=== PATIENT | male | born 1970 | race Caucasian/White ===

== ENCOUNTER 2021-07-31 09:05 | Outpatient (CLI) | payer BC, SELFPAY ==
[2021-07-31 09:20] LABS: Basophils Absolute Auto 0.04 K/mm3 (0.00-0.10); Basophils Percent Auto 0.5 % (0.0-1.0); Eosinophils Absolute Auto 0.26 K/mm3 (0.02-0.50); Eosinophils Percent Auto 2.9 % (1.0-6.0); Hematocrit 47.2 % (40.0-54.0); Hemoglobin 15.6 g/dL (14.0-18.0); Immature Granulocyte Absolute 0.04 K/mm3 (0.00-0.00); Immature Granulocyte Percent A 0.5 % (0.0-0.0); Lymphocytes Absolute Auto 2.49 K/mm3 (1.10-4.50); Lymphocytes Percent Auto 28.2 % (18.0-42.0); Mean Corpuscular HGB Conc 33.1 g/dL (32.0-36.0); Mean Corpuscular Hemoglobin 29.7 pg (27.0-31.0); Mean Corpuscular Volume 89.9 fL (78.0-102.0); Mean Platelet Volume 9.6 fl (8.7-11.0); Monocytes Percent Auto 9.1 % (2.0-11.0); Neutrophils Absolute Auto 5.2 K/mm3 (1.7-7.2); Neutrophils Percent Auto 58.8 % (50.0-70.0); Platelet Count Result 303 K/mm3 (150-420); Red Blood Count 5.25 M/mm3 (4.70-6.10); Red Cell Distribution Width 12.5 % (11.6-14.4); White Blood Count 8.8 K/mm3 (4.8-10.8)
[2021-07-31 10:21] LABS: Alanine Aminotransferase 43 U/L (16-63); Albumin Level 4.4 g/dL (3.4-5.0); Alkaline Phosphatase 78 U/L (46-116); Anion Gap 10 mmol/L (8-16); Aspartate Amino Transferase 17 U/L (15-37); Bilirubin,Total 0.7 mg/dL (0.00-1.00); Blood Urea Nitrogen 18 mg/dL (7-18); Calcium 9.4 mg/dL (8.5-10.1); Carbon Dioxide 31 mmol/L (21-32); Chloride 100 mmol/L (98-108); Cholesterol 201 mg/dL (0-200); Estimated Glomerular Filt Rate > 60; Glucose 95 mg/dL (70-99); HDL Direct 59 mg/dL (40-60); LDL Cholesterol Calculated 119 mg/dL (<130); Osmolality Calculated 293 mOsm/kg (285-295); Potassium 4.8 mmol/L (3.5-5.1); Prostate Specific Antigen 1.4 ng/mL (< OR = 4.0); Sodium 141 mmol/L (136-145); Triglycerides 115 mg/dL (0-150)
== END 2021-07-31 09:06 | disposition home or self-care (01) ==
LOC: CHSLAB 09:09
PROVIDERS: PCP Family Medicine; Visit Provider Nurse Practitioner Gerontology
DX: I10 Essential (primary) hypertension (principal); Z12.5 Encounter for screening for malignant neoplasm of prostate
CPT/HCPCS: 36415; 80053; 80061; 84153; 85025; G0103

== ENCOUNTER 2021-10-04 08:14 | Outpatient (CLI) | payer BC, SELFPAY ==
--- NOTE | ~2021-10-04 | XR_ITS ---
EXAMINATION: XR elbow LT min 3V DATE: 10/04/2021 08:32 INDICATION: Left elbow pain TECHNIQUE: Anteroposterior, two oblique and lateral views of the left elbow were obtained. COMPARISON: None. FINDINGS: Alignment of the left elbow is normal. No fracture or joint effusion. Joint spaces are normal. Soft t issues are unremarkable. IMPRESSION: 1. Negative left elbow radiographs. Reviewed, dictated and finalized at location A.
== END 2021-10-04 08:15 | disposition home or self-care (01) ==
LOC: CHSIMG 08:17
PROVIDERS: PCP Family Medicine; Visit Provider Orthopaedic Surgery
DX: M25.522 Pain in left elbow (principal)
CPT/HCPCS: 73080

== ENCOUNTER 2021-12-24 10:55 | Outpatient (RCR) | payer BC, SELFPAY ==
--- NOTE | 2021-12-29 07:18 | PTOPEVAL ---
Thank you for referring Braden Fu to [facility].? The patient is scheduled to be seen for therapy? ____x/week for ___ weeks. Please review, sign, date and return this plan of care ANNA. I agree with and certify that the following plan of care is medically necessary. Referring Physician Date Admitting Provider: Attending Provider: William Gale MD Referring Provider: *PT Outpatient Evaluation Start: 12/24/21 11:04 Freq: Status: Active Protocol: Document 12/24/21 11:04 Tereza (Rec: 12/24/21 12:26 ALISHA [email or web address]) Therapy Assessment Status Assessment Status Assessment Status Evaluation Evaluation Information Problem Diagnosis L Shoulder Pain and L Elbow Pain Onset 12/13/21 Additional Evaluation Detail Quick DASH = 36% Functionally Impaired Subjective Information Pt reports that he began Query Text:As Reported By Patient/ having shoulder pain a few Family years ago and has begun having elbow pain a few months ago. He states that he has had cortisone injection in his L shoulder, which did not help him. He does not have any recollection of a cause of injury for his shoulder and elbow. He states that his L elbow pain is likely tennis elbow. 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 He reports that he used to have a frozen shoulder, that required surgery to allow him to move it better, but is unsure which shoulder that was . Prior Level of Function Comments Additional Prior Level of Function Pt reports that prior to his Comments shoulder pain he was able to work at the [employer] moving 70 pound steel sheets. Pain Assessment Timing of Pain Assessment Timing of Pain Assessment Pre-Treatment Pain Scale Pain Scale Used Numeric (1 - 10) Self Report Pain Assessment Left Elbow(s) Reported Pain Level 1 Pain Description Dull Left Shoulder(s) Reported Pain Level 2 Pain Description Dull Pain Frequency
--- NOTE | 2022-04-26 07:34 | PCPTNOTE ---
meghan has not been to skilled PT since December. as of this date, he will be dc'd from skilled PT services due to lack of return to complete POC. ALISHA
== END 2022-01-12 23:59 | disposition home or self-care (01) ==
LOC: CHSPT 10:55
PROVIDERS: Visit Provider Orthopaedic Surgery
DX: M77.12 Lateral epicondylitis, left elbow (principal); M75.02 Adhesive capsulitis of left shoulder
CPT/HCPCS: 97014; 97110; 97140; 97161; G0283

== ENCOUNTER 2022-04-19 09:03 | Outpatient (CLI) | payer BC, SELFPAY ==
--- NOTE | 2022-04-19 11:00 | NEURO_ITS ---
IMPRESSION: #History of shooting pains in both arms. Left ulnar neuropathy with slowing across the elbow Mild left carpal tunnel syndrome Evolving right carpal tunnel syndrome Normal EMG examination Clinical correlation recommended Nerve Conduction Studies Anti Sensory Summary Table Stim Site NR Peak (ms) P-T Amp (?V) Site1 Site2 Delta-P (ms) Dist (cm) Kev (m/s) Left Median Anti Sensory (2-3nd Digit) Wrist 3.7 24.6 Wrist 2-3nd Digit 3.7 14.0 38 Wrist 2-3nd Digit 3.7 14.0 38 Right Median Anti Sensory (2-3nd Digit) Wrist 3.4 41.7 Wrist 2-3nd Digit 3.4 14.0 41 Wrist 2-3nd Digit 3.4 14.0 41 Left Radial Anti Sensory (Base 1st Digit) Wrist 2.6 32.5 Wrist Base 1st Digit 2.6 0.0 Right Radial Anti Sensory (Base 1st Digit) Wrist 2.3 46.7 Wrist Base 1st Digit 2.3 0.0 Left Ulnar Anti Sensory (5th Digit) Wrist 3.5 26.9 Wrist 5th Digit 3.5 14.0 40 Right Ulnar Anti Sensory (5th Digit) Wrist 2.2 11.8 Wrist 5th Digit 2.2 14.0 64 Motor Summary Table Stim Site NR Onset (ms) O-P Amp (mV) Site1 Site2 Delta-0 (ms) Dist (cm) Kev (m/s) Left Median Motor (Abd Poll Brev) Wrist 4.1 3.4 Elbow Wrist 4.3 23.0 53 Elbow 8.4 2.7 Right Median Motor (Abd Poll Brev) Wrist 3.5 8.2 Elbow Wrist 4.2 25.0 60 Elbow 7.7 7.5 Left Ulnar Motor (Abd Dig Minimi) Wrist 2.8 2.4 A Elbow Wrist 4.2 30.0 71 A Elbow 7.0 1.8 B Elbow Wrist 5.6 29.0 52 B Elbow 8.4 1.2 Right Ulnar Motor (Abd Dig Minimi) Wrist 2.9 8.6 A Elbow Wrist 4.7 29.0 62 A Elbow 7.6 7.1 B Elbow Wrist 3.6 21.0 58 B Elbow 6.5 7.3 F Wave Studies NR F-Lat (ms) L-R F-Lat (ms) Left Median (Mrkrs) (Abd Poll Brev) 30.70 1.25 Right Median (Mrkrs) (Abd Poll Brev) 29.45 1.25 Left Ulnar (Mrkrs) (Abd Dig Min) 29.88 0.18 Right Ulnar (Mrkrs) (Abd Dig Min) 30.06 0.18 EMG Side Muscle Nerve Root Ins Act Fibs Amp Dur Recrt Comment Right 1stDorInt Ulnar C8-T1 Nml Nml Nml Nml Nml Right Ext Indicis Radial (Post Int) C7-8 Nml Nml Nml Nml Nml Right Ext Digitorum Radial (Post Int) C7-8 Nml Nml Nml Nml Nml Right BrachioRad Radial C5-6 Nml Nml Nml Nml Nml Right PronatorTeres Median C6-7 Nml Nml Nml Nml Nml Right Abd Poll Brev Median C8-T1 Nml Nml Nml Nml Nml Left 1stDorInt Ulnar C8-T1 Nml Nml Nml Nml Nml Left Ext Indicis Radial (Post Int) C7-8 Nml Nml Nml Nml Nml Left Ext Digitorum Radial (Post Int) C7-8 Nml Nml Nml Nml Nml Left BrachioRad Radial C5-6 Nml Nml Nml Nml Nml Left PronatorTeres Median C6-7 Nml Nml Nml Nml Nml Left Abd Poll Brev Median C8-T1 Nml Nml Nml Nml Nml MTDD
== END 2022-04-19 09:04 | disposition home or self-care (01) ==
PROVIDERS: PCP Family Medicine; Visit Provider Nurse Practitioner Gerontology
DX: R20.0 Anesthesia of skin (principal); G56.02 Carpal tunnel syndrome, left upper limb; G56.23 Lesion of ulnar nerve, bilateral upper limbs
CPT/HCPCS: 95886; 95911

== ENCOUNTER 2022-08-01 10:25 | Outpatient (CLI) | payer BC, SELFPAY ==
--- NOTE | ~2022-08-01 | XR_ITS ---
EXAMINATION: XR chest 2V Exam Date/Time: 08/01/2022 10:40 CONE SEWER HISTORY: R05.9 - Cough, unspecified Comparison: None available. RESULT: Lines, tubes, and devices: Incompletely visualized cervical fusion hardware. Lungs and pleura: Clear. Cardiomediastinal silhouette: Unremarkable. Other: No acute osseous or upper abdominal finding. IMPRESSION: No acute cardiopulmonary process. Reviewed, dictated and finalized at location K. SEWER
== END 2022-08-01 10:26 | disposition home or self-care (01) ==
LOC: ANHIMG 10:28
PROVIDERS: PCP Family Medicine; Visit Provider Nurse Practitioner Gerontology
DX: R05.9 Cough, unspecified (principal)
CPT/HCPCS: 71046

== ENCOUNTER 2022-09-04 19:39 | Emergency (ER) | payer BC, SELFPAY ==
[2022-09-04 19:44] VITALS: BP 141/91; PULSE 77; RESP 18; TEMP 36.9; O2SAT 99
--- NOTE | 2022-09-04 19:56 | ED.GENADULT ---
HPI - General Adult General Chief complaint: Skin/Abscess/Foreign Body Stated complaint: rash Time Seen by Provider: 09/04/22 19:49 History of Present Illness HPI narrative: Braden is a 52M with a PMH of dermatitis, carpal tunnel, arthritis, GERD, HTN and eczema that presented to the ED with a rash for a couple days. It is an itchy rash over most of his body but spares his neck and hands. OTC steroid cream helps a bit. He was exposed to new chemicals at work (works at [employer]) and he had a new detergent for his clothes. There were no fevers, chills, dyspnea, boils, wheezing, dyspnea or chest pain. Related Data Allergies Allergy/AdvReac Type Severity Reaction Status Date / Time No Known Allergies Allergy Verified 09/04/22 19:50 Review of Systems Review of Systems: All systems reviewed & are unremarkable except as noted in HPI and below PMFSH Past Medical History Medical History Adhesive capsulitis of left shoulder Adhesive capsulitis of right shoulder Arthritis of shoulder region, left, degenerative Benign essential HTN GERD (gastroesophageal reflux disease) Glenohumeral arthritis History of dental problems Hypertension Lateral epicondylitis, left elbow Shoulder pain, bilateral Vision abnormalities Surgical History Surgical History H/O shoulder surgery Right shoulder EFRAÍN DOS: 2019 Dr. Gale Family History Family History Other Hypertension Social History Social History Social History: Smoking packs per day: 1.5 Smoking cigarettes per day: 30.0 Years smoked: 30 Smoking pack-years: 45.00 Smoking status: Never smoker Tobacco type: cigarettes Second hand tobacco smoke exposure: No Smoking end date: 07/24/05 Alcohol intake: current Alcohol use details: Occasionally Substance use: never Substance use type: does not use Living arrangements: with family Occupation/Education: occupation Gender identity (if verbalized by the patient): Male Sexual Orientation (if Verbalized by the Patient): Straight or Heterosexual Exam Const: General: healthy appearing and no acute distress Nutritional Appearance: well nourished HENMT: Head: normal to inspection Ears: external ears normal Eyes: Conjunctivae: conjunctivae normal Pupils: Equal, round and reactive pupils present Neck: Neck: normal visual inspection Chest: Chest palpation & inspection: normal inspection of the chest Resp: Effort & Inspection: normal respiratory effort Cardio: Rate: regular rate GI: Inspection: non-distended Back/Spine/Pelvis: Back: no CVA tenderness Skin: Other: diffuse erythematous maculopapular rash all over his body except his hands, neck and face. There is excoriation on his upper extremities Extrem: General: normal to inspection Psych: Mental Status: mental status grossly normal Course Course Emergency Course: given hydroxyzine and discussed OTC meds for rash and to go back to the previous detergent as well as general skin care (moisturizer, heat reduction, etc.) Discharge Plan Discharge Clinical Impression: Dermatitis Patient Disposition: Home, Self-Care Condition: Stable Instructions: Dermatitis (ED) Prescriptions: New hydroxyzine HCl 50 mg tablet 50 mg PO BID PRN (Reason: itching) Qty: 30 0RF No Action lisinopril-hydrochlorothiazide 20-12.5 mg tablet See Rx Instructions .ROUTE .COMPLEX Qty: 90 1RF Dose Instruction: TAKE 1 TABLET DAILY Rx Instructions: TAKE 1 TABLET DAILY omeprazole 20 mg capsule,delayed release(DR/EC) See Rx Instructions .ROUTE .COMPLEX Qty: 90 1RF Dose Instruction: TAKE 1 CAPSULE DAILY Rx Instructions: TAKE 1 CAPSULE DAILY Follow-up/Referrals: Leyla Posadas
[2022-09-04] MEDS: hydrOXYzine HCL 25 MG TABLET 50 MG PO (20:05)
== END 2022-09-04 20:09 | disposition home or self-care (01) ==
PROVIDERS: Emergency Provider Family Medicine; PCP Family Medicine
DX: L30.9 Dermatitis, unspecified (principal); I10 Essential (primary) hypertension
CPT/HCPCS: 99283; A9270

== ENCOUNTER 2022-10-27 08:19 | Outpatient (CLI) | payer BC, SELFPAY ==
[2022-10-27 08:34] LABS: Basophils Absolute Auto 0.04 K/mm3 (0.00-0.10); Basophils Percent Auto 0.5 % (0.0-1.0); Eosinophils Percent Auto 3.6 % (1.0-6.0); Hematocrit 43.2 % (40.0-54.0); Hemoglobin 14.6 g/dL (14.0-18.0); Immature Granulocyte Absolute 0.04 K/mm3 (0.00-0.00); Immature Granulocyte Percent A 0.5 % (0.0-0.0); Lymphocytes Absolute Auto 2.29 K/mm3 (1.10-4.50); Lymphocytes Percent Auto 27.7 % (18.0-42.0); Mean Corpuscular HGB Conc 33.8 g/dL (32.0-36.0); Mean Corpuscular Hemoglobin 29.7 pg (27.0-31.0); Mean Platelet Volume 9.8 fl (8.7-11.0); Monocytes Absolute Auto 0.64 K/mm3 (0.10-0.90); Monocytes Percent Auto 7.7 % (2.0-11.0); Platelet Count Result 261 K/mm3 (150-420); Red Blood Count 4.91 M/mm3 (4.70-6.10); Red Cell Distribution Width 12.3 % (11.6-14.4); White Blood Count 8.3 K/mm3 (4.8-10.8)
[2022-10-27 09:36] LABS: Alanine Aminotransferase 56 U/L (16-63); Albumin Level 4.1 g/dL (3.4-5.0); Alkaline Phosphatase 81 U/L (46-116); Anion Gap 8 mmol/L (8-16); Aspartate Amino Transferase 29 U/L (15-37); Bilirubin,Total 0.7 mg/dL (0.00-1.00); Blood Urea Nitrogen 14 mg/dL (7-18); Calcium 8.9 mg/dL (8.5-10.1); Carbon Dioxide 31 mmol/L (21-32); Chloride 105 mmol/L (98-108); Cholesterol 165 mg/dL (0-200); Estimated Glomerular Filt Rate > 60; Glucose 90 mg/dL (70-99); HDL Direct 56 mg/dL (40-60); LDL Cholesterol Calculated 86 mg/dL (<130); Osmolality Calculated 298 mOsm/kg (285-295); Potassium 4.3 mmol/L (3.5-5.1); Prostate Specific Antigen 1.1 ng/mL (< OR = 4.0); Sodium 144 mmol/L (136-145); Triglycerides 114 mg/dL (0-150)
== END 2022-10-27 08:20 | disposition home or self-care (01) ==
PROVIDERS: PCP Family Medicine; Visit Provider Nurse Practitioner Gerontology
DX: Z12.5 Encounter for screening for malignant neoplasm of prostate (principal); E78.5 Hyperlipidemia, unspecified; I10 Essential (primary) hypertension
CPT/HCPCS: 36415; 80053; 80061; 84153; 85025; G0103

== ENCOUNTER 2023-11-21 06:57 | Outpatient (CLI) | payer BC, SELFPAY ==
[2023-11-21 07:12] LABS: Basophils Absolute Auto 0.03 K/mm3 (0.00-0.10); Basophils Percent Auto 0.3 % (0.0-1.0); Eosinophils Absolute Auto 0.23 K/mm3 (0.02-0.50); Eosinophils Percent Auto 2.4 % (1.0-6.0); Hematocrit 46.3 % (40.0-54.0); Hemoglobin 15.4 g/dL (14.0-18.0); Immature Granulocyte Absolute 0.04 K/mm3 (0.00-0.00); Immature Granulocyte Percent A 0.4 % (0.0-0.0); Lymphocytes Percent Auto 27.3 % (18.0-42.0); Mean Corpuscular HGB Conc 33.3 g/dL (32-36); Mean Corpuscular Hemoglobin 29.7 pg (27.0-31.0); Mean Corpuscular Volume 89.4 fL (78.0-102.0); Mean Platelet Volume 9.7 fl (8.7-11.0); Monocytes Absolute Auto 0.72 K/mm3 (0.10-0.90); Monocytes Percent Auto 7.6 % (2.0-11.0); Neutrophils Absolute Auto 5.89 K/mm3 (1.70-7.20); Platelet Count Result 269 K/mm3 (150-420); Red Blood Count 5.18 M/mm3 (4.70-6.10); Red Cell Distribution Width 12.1 % (11.6-14.4); White Blood Count 9.5 K/mm3 (4.8-10.8)
[2023-11-21 08:22] LABS: Alanine Aminotransferase 55 U/L (16-63); Albumin Level 4.4 g/dL (3.4-5.0); Alkaline Phosphatase 76 U/L (46-116); Anion Gap 7 mmol/L (4-12); Aspartate Amino Transferase 21 U/L (15-37); Bilirubin,Total 0.7 mg/dL (0.00-1.00); Blood Urea Nitrogen 12 mg/dL (7-18); Calcium 9.3 mg/dL (8.5-10.1); Carbon Dioxide 30 mmol/L (21-32); Chloride 101 mmol/L (98-108); Cholesterol 191 mg/dL (0-200); Estimated Glomerular Filt Rate > 60; Free T3 3.18 pg/mL (2.18-3.98); Free T4 Free Thyroxine 0.98 ng/dL (0.76-1.46); Glucose 91 mg/dL (70-99); HDL Direct 60 mg/dL (40-60); LDL Cholesterol Calculated 105 mg/dL (<130); Osmolality Calculated 285 mOsm/kg (285-295); Potassium 4.4 mmol/L (3.5-5.1); Prostate Specific Antigen 1.7 ng/mL (< OR = 4.0); Sodium 138 mmol/L (136-145); Thyroid Stimulating Hormone 1.28 uIU/mL (0.36-3.74); Total Protein 7.3 g/dL (6.4-8.2); Triglycerides 129 mg/dL (0-150)
== END 2023-11-21 06:58 | disposition home or self-care (01) ==
LOC: CHSLAB 07:00
PROVIDERS: PCP Family Medicine; Visit Provider Physician Assistant
DX: R53.83 Other fatigue (principal); E07.9 Disorder of thyroid, unspecified; Z12.5 Encounter for screening for malignant neoplasm of prostate; I10 Essential (primary) hypertension; Z13.220 Encounter for screening for lipoid disorders
CPT/HCPCS: 36415; 80053; 80061; 84153; 84439; 84443; 84481; 85025; G0103

== ENCOUNTER 2024-08-17 08:09 | Emergency (ER) | payer BC, SELFPAY ==
[2024-08-17] VITALS (10 sets, daily range): BP systolic 128–136; BP diastolic 83–91; PULSE 82–96; RESP 18–20; TEMP 37.1; O2SAT 92–94
--- OUTSIDE RECORDS SUMMARY | 2024-08-17 08:11 | XMS_ITS | Clinical Summary ---
Author Organization [facility] Address [address] [place] [id number] Care Team Providers Care Hydrogenation Still Operator Name Role Phone Asia Posadas MD Primary Care Provider Allergies Active Allergy Reactions Criticality Noted Date Comments Sulfa (Sulfonamide Antibiotics) Rash Reaction: Rash, Medications No known medications Active Problems Problem Noted Date Diagnosed Date Allergic contact dermatitis 06/30/2015 Rash 06/29/2015 Surgical History Surgery Date Site/Laterality Comments FLUORO GUIDED INJECTION SHOULDER LEFT 11/24/2020 Lef t Medical History Medical History Date Comments Personal history of other di seases of the circulatory system History of hypertension - (A dded by TW Jeannette) Social History Tobacco Use Types Packs/Day Years Used Date Smoking Tobacco: Never Personal Safety Answer Date Recorded Getting School Help Needed Not on file 10/06 Sex and Gender Information Value Date Recorded Sex Assigned at Not on file 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 Gender Identity Not on file Sexual Orientation Not on file Obstetrics History Last Filed Vital Signs Vital Sign Reading Time Taken Comments Blood Pressure 143/89 11/24/2020 10:25 AM CDT Pulse 66 11/24/2020 10:25 AM CDT Temperature - - Respiratory Rate 18 11/24/2020 10:25 AM CDT Oxygen Saturation 100% 11/24/2020 10:25 AM CDT Inhaled Oxygen Concentration - - Weight - - Height - - Body Mass Index - - Plan of Treatment Not on file [facility] [employer] Address: [id number] [place] [address] BLUE [employer] Address: [address] [place] [address] [employer] Address: [id number] [place] [address] Care Teams Hydrogenation Still Operator Relationship Specialty Start Date End Date Asia Posadas MD [address] [facility] [address] [place], [place] [id number] PCP - General Family Medicine 05/21/20
--- OUTSIDE RECORDS SUMMARY | 2024-08-17 08:11 | XMS_ITS | Referral Summary ---
Author Organization [facility] Address [address] [place] [phone] Care Team Providers Care Client Director Name Role Phone Asia Posadas MD Primary Care Provider Allergies Active Allergy Reactions Criticality Noted Date Comments Sulfa (Sulfonamide Antibiotics) Rash Reaction: Rash, Medications No known medications Active Problems Problem Noted Date Diagnosed Date Allergic contact dermatitis 06/30/2015 Rash 06/29/2015 Social History Tobacco Use Types Packs/Day Years Used Date Smoking Tobacco: Never Personal Safety Answer Date Recorded Getting School Help Needed Not on file 10/06 Sex and Gender Information Value Date Recorded Sex Assigned at Not on file 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 Gender Identity Not on file Sexual Orientation Not on file Last Filed Vital Signs Vital Sign Reading Time Taken Comments Blood Pressure 143/89 11/24/2020 10:25 AM CDT Pulse 66 11/24/2020 10:25 AM CDT Temperature - - Respiratory Rate 18 11/24/2020 10:25 AM CDT Oxygen Saturation 100% 11/24/2020 10:25 AM CDT Inhaled Oxygen Concentration - - Weight - - Height - - Body Mass Index - - Plan of Treatment Not on file Insurance [employer] ACCESS CHOICE [employer] ACCESS OOS [employer] Care Teams Client Director Relationship Specialty Start Date End Date Asia Posadas MD [address] [facility] [address] [place], [place] [phone] PCP - General Family Medicine 05/21/20
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
[2024-08-17 08:42] LABS: Strep Group A RT-PCR NOT DETECTED (Negative)
[2024-08-17 08:53] LABS: SARS-CoV-2 RNA PCR Negative (Negative)
[2024-08-17 08:55] LABS: Influenza A QL RT-PCR Positive (Negative); Influenza B QL RT-PCR Negative (Negative); RSV RNA, RT-PCR Negative (Negative)
--- NOTE | 2024-08-17 09:00 | ED_ITS ---
HPI - URI/Sore Throat General Chief Complaint: Upper Respiratory Infection Stated Complaint: swabs Time Seen by Provider: 08/17/24 08:12 Source: patient Mode of arrival: ambulatory Limitations: no limitations History of Present Illness HPI Narrative: this is a 54-year-old male with history of hypertension presents with a 2 week history of cough congestion with no fever chills no shortness of breath does feel weak and fatigued with no chest pain no nausea vomiting no abdominal pain. MD elicited complaint: cough, sore throat and nasal congestion Onset (ago): week(s) Consistency: constant Severity: mild Description of mucous: yellow Related Data Allergies Allergy/AdvReac Type Severity Reaction Status Date / Time No Known Allergies Allergy Verified 08/17/24 08:25 Review of Systems Review of Systems: All systems reviewed & are unremarkable except as noted in HPI and below PMFSH Past Medical History Medical History Chronic left shoulder pain Arthritis of left shoulder region Laryngitis Adhesive capsulitis of left shoulder History of dental problems Lateral epicondylitis, left elbow GERD (gastroesophageal reflux disease) Benign essential HTN Glenohumeral arthritis Hypertension Vision abnormalities Shoulder pain, bilateral Arthritis of shoulder region, left, degenerative Adhesive capsulitis of right shoulder Surgical History Surgical History H/O shoulder surgery Right shoulder EFRAÍN DOS: 2019 Dr. Gale Family History Family History Other Hypertension Social History Social History Social History: Smoking packs per day: 1.5 Smoking cigarettes per day: 30.0 Years smoked: 30 Smoking pack-years: 45.00 Smoking status: Former smoker Tobacco type: cigarettes Second hand tobacco smoke exposure: No Smoking end date: 07/24/05 Alcohol intake: current Alcohol use details: Occasionally Substance use: never Substance use type: does not use Do You Feel Safe in your Home?: Yes Lack of Transportation: No Lack of Food: Never True Current Housing: I Have Housing Concerned About Future Housing: No Difficulty Paying Gas/Electric Bills: No Difficulty Paying for Meds: No Currently Unemployed: No Education: Don't Know Difficulty w/ Childcare or Family Care: No Living arrangements: with family Occupation/Education: occupation Gender identity (if verbalized by the patient): Male Sexual Orientation (if Verbalized by the Patient): Straight or Heterosexual Exam Const: General: healthy appearing and no acute distress Nutritional Appearance: well nourished Orientation/consciousness: patient oriented x3 Limitations: no limitations HENMT: Head: normal to inspection Neck: Neck: normal visual inspection and no lymphadenopathy Chest: Chest palpation & inspection: normal inspection of the chest Resp: Effort & Inspection: normal respiratory effort Auscultation: clear to auscultation bilaterally Cardio: Rate: regular rate Rhythm: regular rhythm GI: GI Palp: Yes Soft to palpation : General: Yes bladder normal to palpation Skin: General skin exam: normal color Rashes: no rashes Wounds: no wounds Neuro: General: patient oriented x3 and moves all extremities Extrem: General: normal to inspection Course Course Emergency Course: Influenza positive the patient is out of the window period for Tamiflu but has been having symptoms for the last couple of weeks which will treat for a secondary bacterial infection and will send antibiotics the patient's local pharmacy. Vital Signs Vital signs: Vital Signs Temperature 37.1 C 08/17/24 08:10 Pulse Rate 96 08/17/24 08:10 Respiratory Rate 18 08/17/24 08:10 Blood Pressure 133/91 H 08/17/24 08:10 Pulse Oximetry 94 08/17/24 08:10 Oxygen Delivery Room Air 08/17/24 08:10 Temperature 37.1 C 08/17/24 08:10 Pulse Rate 96 08/17/24 08:10 Respiratory Rate 18 08/17/24 08:10 Blood Pressure 133/91 H 08/17/24 08:10 Pulse Oximetry 94 08/17/24 08:10 Oxygen Delivery Room Air 08/17/24 08:10 MDM - URI/Sore Throat Lab Data Labs: Lab Results 08/17/24 Range/Units 08:12 Influenza A (RT-PCR) Positive A (Negative) Influenza B (RT-PCR) Negative (Negative) RSV (RT-PCR) Negative (Negative) SARS-CoV-2 RNA (RT-PCR) Negative (Negative) Group A Strep (PCR) Not detected (Negative) Critical Care Time Critical Care Time Critical Care Time: No Discharge Plan Discharge Clinical Impression: Bronchitis, Influenza Patient Disposition: Home, Self-Care Condition: Stable Instructions: Antibiotic Form, Influenza (ED), Acute Bronchitis (ED) Additional Instructions: Advised patient to take medication as prescribed and to follow up with primary if symptoms persist or worsen. Patient Language: Nigerien Prescriptions: New azithromycin [Zithromax Z-Kip] 250 mg tablet See Rx Instructions .ROUTE .COMPLEX Qty: 6 0RF Rx Instructions: For 250 mg dose pack: take 500 mg today (day 1), then 250 mg for 4 days (days 2-5) No Action lisinopril-hydrochlorothiazide 20-12.5 mg tablet See Rx Instructions .ROUTE .COMPLEX Qty: 90 3RF Dose Instruction: TAKE 1 TABLET DAILY Rx Instructions: TAKE 1 TABLET DAILY omeprazole 20 mg capsule,delayed release(DR/EC) See Rx Instructions .ROUTE .COMPLEX Qty: 90 3RF Dose Instruction: TAKE 1 CAPSULE DAILY Rx Instructions: TAKE 1 CAPSULE DAILY sildenafil (pulm.hypertension) 20 mg tablet 20 mg PO DAILY Qty: 30 4RF meloxicam 15 mg tablet 15 mg PO DAILY Qty: 90 0RF Follow-up/Referrals: UNKNOWN,DOCTOR [Primary Care Provider] - Time of Disposition: 09:03
== END 2024-08-17 09:30 | disposition home or self-care (01) ==
PROVIDERS: Emergency Provider Emergency Medicine
DX: J40 Bronchitis, not specified as acute or chronic (principal); J11.1 Influenza due to unidentified influenza virus with other respiratory manifestations; I10 Essential (primary) hypertension; Z87.891 Personal history of nicotine dependence; Z20.822 Contact with and (suspected) exposure to COVID-19
CPT/HCPCS: 87637; 87651; 99283